=== PATIENT | female | born 1985 | race African-American/Black ===

== ENCOUNTER 2019-12-03 17:31 | Emergency (ER) | payer OTHER ==
[~2019-12-03] VITALS: Ht 167.6 cm; Wt 89.4 kg
[2019-12-03] MEDS ORDERED: PRENATAL MEDS (17:55)
[2019-12-03 18:18] LABS: *BILIRUBIN,URIN NEGATIVE (NEGATIVE); *BLOOD, URINE 3+ (NEGATIVE); *COLOR,URINE YELLOW (YELLOW); *KETONES,URINE NEGATIVE (NEGATIVE); *UROBILINOGEN,URINE 0.2 E.U./dl (NORMAL); LEUKOCYTE ESTERASE ,URINE TRACE (NEGATIVE); NITRITE, URINE NEGATIVE (NEGATIVE); PH,URINE 6.5 (5.0-8.0); UGLUCOSE NEGATIVE (NEGATIVE)
[2019-12-03 18:25] LABS: *CLARITY,URINE HAZY (CLEAR)
[2019-12-03 18:27] LABS: BACTERIA,URINE FEW /HPF (NONE SEEN); MUCUS,URINE FEW /LPF (0-FEW); SQUAMOUS EPITHELIAL CELL,UR MODERATE /HPF (NONE SEEN)
[2019-12-03 18:34] LABS: BASOPHILS % (AUTO) 0.9 % (0.0-2.0); EOSINOPHILS # (AUTO) 0.1 K/uL (0.0-0.7); EOSINOPHILS % (AUTO) 1.4 % (0.0-7.0); HEMATOCRIT 39.2 % (31.2-41.9); HEMOGLOBIN 13.2 g/dL (10.9-14.3); LYMPHOCYTES # (AUTO) 1.6 K/uL (20.0-40.0); LYMPHOCYTES % (AUTO) 28.7 % (20.5-51.5); MEAN CORPUSCULAR HEMOGLOBIN 33.2 uug (24.7-32.8); MEAN CORPUSCULAR HGB CONC 34 g/dL (32.3-35.6); MEAN CORPUSCULAR VOLUME 98.2 fL (75.5-95.3); MONOCYTES # (AUTO) 0.5 K/uL (2.0-10.0); MONOCYTES % (AUTO) 8.3 % (0.0-11.0); NEUTROPHILS # (AUTO) 3.3 K/uL (1.8-8.9); NEUTROPHILS % (AUTO) 60.7 % (38.5-71.5); PLATELET COUNT (AUTO) 313 K/uL (179-408); RED BLOOD CELL COUNT(AUTO) 3.99 MIL/uL (3.63-4.92); WHITE BLOOD COUNT (AUTO) 5.5 K/uL (3.8-11.8)
[2019-12-03 18:40] LABS: CREATININE 0.9 mg/dL (0.6-1.3); POTASSIUM 3.6 mmol/L (3.5-5.1)
--- NOTE | 2019-12-03 19:25 | NUR ---
US tech at bedside for scan.
--- NOTE | 2019-12-03 20:23 | NUR ---
Patient discharged to home in stable condition. Written and verbal after care instructions given. Patient verbalizes understanding of instructions. Stressed follow up or return to ER for worsening s/s.
[2019-12-03 20:24] VITALS: BP 131/83
== END 2019-12-03 20:24 | disposition home or self-care (01) ==
LOC: ER 17:38
DX: O03.9 Complete or unspecified spontaneous abortion without complication (principal)
CPT/HCPCS: 36415; 76856; 85025; 86850; 86900; 86901; A4663